=== PATIENT | female | born 1940 | race Caucasian/White ===

== ENCOUNTER 2020-03-05 16:46 | Emergency (ER) | payer MEDICARE, MEDICAID ==
[~2020-03-05] VITALS: Ht 160 cm; Wt 81.8 kg
--- NOTE | 2020-03-05 18:04 | REPVR ---
PROCEDURE INFORMATION: Exam: XR Left Hip with Pelvis when Performed Exam date and time: 03/05/2020 5:58 PM Age: 79 years old Clinical indication: Hip pain; Left hip; Additional info: Fall 5 days ago TECHNIQUE: Imaging protocol: XR Left hip with pelvis when performed. Views: 2 or 3 views. COMPARISON: No relevant prior studies available. FINDINGS: Bones/joints: Degenerative changes in both hip joints. Degenerative spondylosis lower lumbar spine. Soft tissues: Unremarkable. IMPRESSION: No acute findings. Electronically signed by: Jakub Mack On 03/05/2020 18:04:16 PM
--- NOTE | 2020-03-05 18:05 | REPVR ---
PROCEDURE INFORMATION: Exam: XR Left Knee Exam date and time: 03/05/2020 5:58 PM Age: 79 years old Clinical indication: Pain; Knee; Left; Additional info: Fall 5 days ago TECHNIQUE: Imaging protocol: XR Left knee. Views: 4 or more views. COMPARISON: No relevant prior studies available. FINDINGS: Bones/joints: Degenerative changes most pronounced in the medial and patellofemoral joint compartments. Osteoporosis. Soft tissues: Normal. IMPRESSION: No acute findings. Degenerative changes as described above. Electronically signed by: Jakub Mack On 03/05/2020 18:05:10 PM
[2020-03-05] MEDS ORDERED: NORCO, ANEXSIA 5/325MG TABLET (HYDROcodone/ACETAMINOPHEN) PO ONE (19:00)
[2020-03-05] MEDS ORDERED: NORC1TAB7 PO (20:45)
[2020-03-05] MEDS ORDERED: bedside commode (20:50)
[2020-03-05] MEDS ORDERED: rolling walker (20:50)
[2020-03-05] MEDS ORDERED: NORCO 5/325MG TABLET (BULK FOR ED) PO ONE (21:00)
[2020-03-05 21:15] VITALS: BP 166/82
== END 2020-03-05 21:15 | disposition home or self-care (01) ==
LOC: M ED 16:46 → EDBD 16:46 → M ED 21:15
DX: S70.02XA Contusion of left hip, initial encounter (principal); W01.0XXA Fall on same level from slipping, tripping and stumbling without subsequent striking against object, initial encounter; Y92.9 Unspecified place or not applicable; Y93.9 Activity, unspecified; Y99.9 Unspecified external cause status

== ENCOUNTER → 2020-04-26 | Outpatient (REF) | payer MEDICARE, OTHER ==
[~2020-04-26] MED LIST: NORC1TAB7 PO; bedside commode; rolling walker
[2020-04-26 18:10] LABS: BASO # 0.1 10^3/uL (0.0-0.2); BASO % 0.8 % (0.0-1.0); EOS # 0.5 10^3/uL (0.0-0.5); EOS % 7.6 % (0.0-3.0); HEMATOCRIT 36.6 % (36.0-47.0); HEMOGLOBIN 11.9 g/dl (12.0-15.5); LYMPH # 1.3 10^3/uL (1.5-5.0); LYMPH % 22.8 % (24.0-44.0); MEAN CORPUSCULAR HEMOGLOBIN 29.5 pg (27.0-33.0); MEAN CORPUSCULAR HGB CONC 32.5 g/dl (32.0-36.5); MEAN CORPUSCULAR VOLUME 90.8 fl (80.0-96.0); MONO # 0.3 10^3/uL (0.0-0.8); MONO % 4.6 % (0.0-5.0); NEUTROPHILS # 3.8 10^3/uL (1.5-8.5); PLATELET COUNT, AUTOMATED 182 10^3/uL (150-450); RED BLOOD COUNT 4.03 10^6/uL (4.00-5.40); WHITE BLOOD COUNT 5.9 10^3/uL (4.0-10.0)
[2020-04-26 18:54] LABS: ALBUMIN 3.5 GM/DL (3.2-5.2); BILIRUBIN,TOTAL 1.1 MG/DL (0.2-1.0); CALCIUM LEVEL 8.8 MG/DL (8.8-10.2); CHOLESTEROL RISK RATIO 2.982 (<5); CREATININE FOR GFR 1.11 MG/DL (0.55-1.30); GLOMERULAR FILTRATION RATE 50.6 (>39); POTASSIUM SERUM 4.4 MEQ/L (3.5-5.1); THYROID STIMULATING HORMONE 3.46 uIU/ML (0.358-3.740); TOTAL PROTEIN 6.9 GM/DL (6.4-8.2)
== END ==
LOC: M LAB REF 16:51
PROVIDERS: ATTEND Physician Assistant
DX: Z13.220 Encounter for screening for lipoid disorders (principal); Z13.228 Encounter for screening for other metabolic disorders; R03.0 Elevated blood-pressure reading, without diagnosis of hypertension

== ENCOUNTER → 2022-04-27 | Outpatient (REF) | payer MEDICARE, OTHER ==
[2022-04-27 18:22] LABS: HEMATOCRIT 36.4 % (36.0-47.0); HEMOGLOBIN 11.5 g/dl (12.0-15.5); MEAN CORPUSCULAR HEMOGLOBIN 29.9 pg (27.0-33.0); MEAN CORPUSCULAR HGB CONC 31.6 g/dl (32.0-36.5); MEAN CORPUSCULAR VOLUME 94.5 fl (80.0-96.0); PLATELET COUNT, AUTOMATED 186 10^3/uL (150-450); RED BLOOD COUNT 3.85 10^6/uL (4.00-5.40); WHITE BLOOD COUNT 6.3 10^3/uL (4.0-10.0)
[2022-04-27 20:46] LABS: ALBUMIN 3.5 GM/DL (3.2-5.2); BILIRUBIN,TOTAL 0.5 MG/DL (0.2-1.0); CHOLESTEROL RISK RATIO 2.666 (<5); CREATININE FOR GFR 1.04 MG/DL (0.55-1.30); GLOMERULAR FILTRATION RATE 54.3 (>32); THYROID STIMULATING HORMONE 1.03 uIU/ML (0.358-3.740)
== END ==
LOC: M LAB REF 17:08
PROVIDERS: ATTEND Physician Assistant
DX: I10 Essential (primary) hypertension (principal)

== ENCOUNTER 2023-12-02 09:35 | Day surgery (SDC) | payer OTHER ==
[2023-11-11] MEDS: OFLOXACIN 0.3 % (OCUFLOX) OPTH SOL 5ML OD ONE (08:15)
[2023-11-11] MEDS: LIDOCAINE 3.5 % 1ML OPHTH TOPICAL GEL OU ONE (10:00)
[~2023-12-02] VITALS: Ht 154.9 cm; Wt 88.9 kg
[~2023-12-02 09:35] MED LIST changes: +ATROPINE SULFATE 1% OPHTH SOLN 2ML BTL OD SCH; +ATROPINE SULFATE 1% OPHTH SOLN 2ML BTL OS SCH; +BSS IRRIG/VANCO(10MG)/TOBRA(5MG)/EPINEPH(1:1000-0.5CC)500ML BAG-ORONLY As Ordered ONE; +CEFUROXIME 1MG/0.1ML INTRACAMERAL INJ As Ordered ONE; +LIDOCAINE 1% SDV 5ML VIAL As Ordered ONE; +MIDAZOLAM INJ 2MG/2ML VIAL As Ordered ONE; +PHENYLEPHRINE 10% OPHTH SOL 5ML OD PRN; +PHENYLEPHRINE 10% OPHTH SOL 5ML OS PRN; +PHENYLEPHRINE 2.5% OPHTH SOL 2ML OD SCH; +PHENYLEPHRINE 2.5% OPHTH SOL 2ML OS SCH; +TROPICAMIDE 1% OPHTH SOLN 15ML OD SCH; +fentaNYL 100 MCG/2 ML INJECTION As Ordered ONE
[2023-12-02 09:52] VITALS: BP 145/72; TEMP 97.8; O2SAT 96
[2023-12-02] MEDS: LIDOCAINE 3.5 % 1ML OPHTH TOPICAL GEL OU ONE (10:00)
[2023-12-02] MEDS: OFLOXACIN 0.3 % (OCUFLOX) OPTH SOL 5ML OS ONE (10:00)
[2023-12-02] MEDS: TROPICAMIDE 1% OPHTH SOLN 15ML OS SCH (10:47)
== END 2023-12-02 10:40 | disposition home or self-care (01) ==
LOC: M SDC 09:35
PROVIDERS: ATTEND Ophthalmology
DX: H25.11 Age-related nuclear cataract, right eye (principal); Z53.8 Procedure and treatment not carried out for other reasons

== ENCOUNTER 2024-01-20 09:38 | Day surgery (SDC) | payer OTHER ==
[~2024-01-20] VITALS: Ht 157.5 cm; Wt 85.7 kg
[2024-01-20] MEDS: OFLOXACIN 0.3 % (OCUFLOX) OPTH SOL 5ML OS ONE (06:00)
[2024-01-20] MEDS: LIDOCAINE 3.5 % 1ML OPHTH TOPICAL GEL OU ONE (06:00)
[~2024-01-20 09:38] MED LIST changes: -ATROPINE SULFATE 1% OPHTH SOLN 2ML BTL OD SCH; -ATROPINE SULFATE 1% OPHTH SOLN 2ML BTL OS SCH; -BSS IRRIG/VANCO(10MG)/TOBRA(5MG)/EPINEPH(1:1000-0.5CC)500ML BAG-ORONLY As Ordered ONE; -CEFUROXIME 1MG/0.1ML INTRACAMERAL INJ As Ordered ONE; -LIDOCAINE 1% SDV 5ML VIAL As Ordered ONE; -MIDAZOLAM INJ 2MG/2ML VIAL As Ordered ONE; -PHENYLEPHRINE 10% OPHTH SOL 5ML OD PRN; -PHENYLEPHRINE 2.5% OPHTH SOL 2ML OD SCH; -PHENYLEPHRINE 2.5% OPHTH SOL 2ML OS SCH; -TROPICAMIDE 1% OPHTH SOLN 15ML OD SCH; -fentaNYL 100 MCG/2 ML INJECTION As Ordered ONE
[2024-01-20] MEDS: TROPICAMIDE 1% OPHTH SOLN 15ML OS SCH (10:21)
[2024-01-20] MEDS: ATROPINE SULFATE 1% OPHTH SOLN 2ML BTL OS SCH (10:21)
[2024-01-20] MEDS: PHENYLEPHRINE 2.5% OPHTH SOL 2ML OS SCH (10:21)
[2024-01-20] MEDS: BSS IRRIG/VANCO(10MG)/TOBRA(5MG)/EPINEPH(1:1000-0.5CC)500ML BAG-ORONLY As Ordered ONE (10:36)
[2024-01-20] MEDS: LIDOCAINE 1% SDV 5ML VIAL As Ordered ONE (10:36)
[2024-01-20] MEDS ORDERED: MIDAZOLAM INJ 2MG/2ML VIAL As Ordered ONE (10:38)
[2024-01-20] MEDS ORDERED: fentaNYL 100 MCG/2 ML INJECTION As Ordered ONE (10:39)
[2024-01-20] MEDS: CEFUROXIME 1MG/0.1ML INTRACAMERAL INJ As Ordered ONE (10:40)
[2024-01-20] MEDS: PROVISC 10 MG/ML 0.85ML SYRINGE As Ordered ONE (10:41)
[2024-01-20 10:49] VITALS: BP 129/58; TEMP 97.2; O2SAT 95
== END 2024-01-20 11:09 | disposition home or self-care (01) ==
LOC: M SDC 09:38
PROVIDERS: ATTEND Ophthalmology
DX: H25.12 Age-related nuclear cataract, left eye (principal); Z91.018 Allergy to other foods; J30.2 Other seasonal allergic rhinitis
CPT/HCPCS: 66984; A4649; J0697; J2250; J3010; V2632

== ENCOUNTER 2024-04-05 12:51 | Inpatient (IN) | payer MEDICARE, OTHER ==
[~2024-04-05] VITALS: Ht 160 cm; Wt 81.4 kg
[2024-04-05] VITALS (8 sets, daily range): BP systolic 99–135; BP diastolic 48–77; TEMP 97.1–98.1; O2SAT 96–100
[~2024-04-05 12:51] MED LIST changes: -PHENYLEPHRINE 10% OPHTH SOL 5ML OS PRN
[2024-04-05 14:10] LABS: BASO # 0.1 10^3/uL (0.0-0.2); BASO % 0.7 % (0.0-1.0); EOS # 0.3 10^3/uL (0.0-0.5); EOS % 3.8 % (0.0-3.0); LYMPH % 13.4 % (24.0-44.0); MEAN CORPUSCULAR HEMOGLOBIN 21.7 pg (27.0-33.0); MEAN CORPUSCULAR HGB CONC 27.8 g/dl (32.0-36.5); MEAN CORPUSCULAR VOLUME 77.9 fl (80.0-96.0); MONO # 0.4 10^3/uL (0.0-0.8); MONO % 5.7 % (2.0-8.0); NEUTROPHILS # 5.7 10^3/uL (1.5-8.5); NEUTROPHILS % 76.1 % (36.0-66.0); PLATELET COUNT, AUTOMATED 226 10^3/uL (150-450); WHITE BLOOD COUNT 7.5 10^3/uL (4.0-10.0)
[2024-04-05 14:18] LABS: HEMATOCRIT 18.7 % (36.0-47.0); HEMOGLOBIN 5.2 g/dl (12.0-15.5)
[2024-04-05 14:21] LABS: INR 1.31; PARTIAL THROMBOPLASTIN TIME 29.1 SECONDS (24.8-34.2); PROTHROMBIN TIME 15.9 SECONDS (12.5-14.5)
[2024-04-05 14:27] LABS: ALBUMIN 2.5 G/DL (3.2-5.2); BILIRUBIN,DIRECT 0.3 MG/DL (<0.4); BILIRUBIN,TOTAL 0.6 MG/DL (0.3-1.2); CALCIUM LEVEL 8.5 MG/DL (8.3-10.6); CREATININE FOR GFR 1.12 MG/DL (0.55-1.30); GLOMERULAR FILTRATION RATE 49.6 (>32); POTASSIUM SERUM 3.4 MMOL/L (3.5-5.1); TOTAL PROTEIN 6.3 G/DL (5.7-8.2)
[2024-04-05 14:29] LABS: THYROXINE (T4) 10.3 UG/DL (4.5-10.9)
[2024-04-05 14:30] LABS: THYROID STIMULATING HORMONE 2.566 uIU/ML (0.55-4.78)
[2024-04-05] MEDS ORDERED: ISOVUE-370 76% 100ML VIAL As Ordered ONE (15:16)
[2024-04-05] MEDS ORDERED: HOME MED LIST COMPLETE! XX SCH (16:50)
[2024-04-05] MEDS: POTASSIUM CHLORIDE 10MEQ SR TABLET PO ONE (18:07)
[2024-04-05] MEDS: GASTROGRAFIN SOLUTION 30ML PO SCH (18:07)
[2024-04-05] MEDS: HEPARIN SOD (PORCINE) 5000UNITS/ML 1ML VIAL/SYRINGE IV ONE (18:17)
[2024-04-05] MEDS: HEPARIN DRIP 25,000 UNITS in IV 1 EA IV SCH (18:18)
[2024-04-06] VITALS (13 sets, daily range): BP systolic 103–150; BP diastolic 55–91; TEMP 97.6–98.8; O2SAT 95–100
[2024-04-06 01:03] LABS: HEMATOCRIT 21.2 % (36.0-47.0); HEMOGLOBIN 6.4 g/dl (12.0-15.5)
[2024-04-06 01:22] LABS: D-DIMER QUANT 2.93 ug/mL (<0.5); INR 1.53; PROTHROMBIN TIME 17.9 SECONDS (12.5-14.5)
[2024-04-06 01:28] LABS: PARTIAL THROMBOPLASTIN TIME 155.7 SECONDS (24.8-34.2)
[2024-04-06 01:41] LABS: PERCENT SATURATION 89.7 % (13.2-45.0)
[2024-04-06 01:43] LABS: FERRITIN 9.3 NG/ML (7.3-270.7)
[2024-04-06] MEDS: SENOKOT S TAB PO SCH (09:00)
[2024-04-06] MEDS: CIPROFLOXACIN 500MG TABLET PO SCH (09:49)
[2024-04-06] MEDS: metroNIDAZOLE (FLAGYL) 500MG TABLET PO SCH (09:49)
[2024-04-06] MEDS: BISACODYL 10MG SUPP PR ONE (09:49)
[2024-04-06] MEDS: PANTOPRAZOLE 40MG TAB (PROTONIX) PO SCH (09:49)
[2024-04-06 10:11] LABS: HEMATOCRIT 21.5 % (36.0-47.0); MEAN CORPUSCULAR HGB CONC 30.2 g/dl (32.0-36.5); MEAN CORPUSCULAR VOLUME 79.3 fl (80.0-96.0); PLATELET COUNT, AUTOMATED 185 10^3/uL (150-450); RED BLOOD COUNT 2.71 10^6/uL (4.00-5.40); WHITE BLOOD COUNT 5.3 10^3/uL (4.0-10.0)
[2024-04-06 10:21] LABS: HEMOGLOBIN 6.5 g/dl (12.0-15.5)
[2024-04-06 13:06] LABS: BILIRUBIN,TOTAL 1.3 MG/DL (0.3-1.2); CREATININE FOR GFR 1.06 MG/DL (0.55-1.30); GLOMERULAR FILTRATION RATE 52.8 (>32); POTASSIUM SERUM 4.2 MMOL/L (3.5-5.1); TOTAL PROTEIN 5.1 G/DL (5.7-8.2)
[2024-04-06] MEDS: FERROUS SULFATE 325MG TAB PO SCH (15:25)
[2024-04-06] MEDS: ASCORBIC ACID 500 MG TAB PO SCH (15:25)
[2024-04-06 17:19] LABS: HEMATOCRIT 21.5 % (36.0-47.0)
[2024-04-06 17:32] LABS: FOLATE 7.66 NG/ML (>5.4)
[2024-04-06 17:49] LABS: HEMATOCRIT 28.4 % (36.0-47.0)
[2024-04-06 18:02] LABS: HEMOGLOBIN 8.8 g/dl (12.0-15.5)
[2024-04-06] MEDS: HEPARIN SOD (PORCINE) 5000UNITS/ML 1ML VIAL/SYRINGE IV PRN (18:29)
[2024-04-06] MEDS: TRIAMCINOLONE ACET 0.1% OINTMENT 80GM TOP SCH (20:40)
[2024-04-07 04:20] VITALS: BP 164/80; TEMP 97.9; O2SAT 95
[2024-04-07 05:39] LABS: HEMATOCRIT 26.9 % (36.0-47.0); HEMOGLOBIN 8.4 g/dl (12.0-15.5); MEAN CORPUSCULAR HEMOGLOBIN 25.1 pg (27.0-33.0); MEAN CORPUSCULAR HGB CONC 31.2 g/dl (32.0-36.5); MEAN CORPUSCULAR VOLUME 80.5 fl (80.0-96.0); PLATELET COUNT, AUTOMATED 176 10^3/uL (150-450); RED BLOOD COUNT 3.34 10^6/uL (4.00-5.40); WHITE BLOOD COUNT 5.1 10^3/uL (4.0-10.0)
[2024-04-07 05:49] LABS: INR 1.39; PARTIAL THROMBOPLASTIN TIME 29.8 SECONDS (24.8-34.2); PROTHROMBIN TIME 16.6 SECONDS (12.5-14.5)
[2024-04-07 08:12] VITALS: BP 134/62; TEMP 97.6; O2SAT 96
[2024-04-07 09:48] LABS: INR 1.53; PARTIAL THROMBOPLASTIN TIME 28.9 SECONDS (24.8-34.2); PROTHROMBIN TIME 17.9 SECONDS (12.5-14.5)
[2024-04-07 11:51] VITALS: BP 152/80; TEMP 97; O2SAT 92
[2024-04-07 12:16] LABS: HEMATOCRIT 27.5 % (36.0-47.0); HEMOGLOBIN 8.6 g/dl (12.0-15.5)
[2024-04-07 17:48] LABS: ANA PATTERN Nuclear, Homogeneous (NEGATIVE); ANA SCREEN, IFA POSITIVE (NEGATIVE); ANA TITER 1:40 titer (<1:40)
[2024-04-07 20:27] VITALS: BP 139/70; TEMP 97.6; O2SAT 97
[2024-04-07] MEDS: RAMELTEON 8 MG TAB (ROZEREM) PO STA (21:15)
[2024-04-07] MEDS: diphenhydrAMINE 25MG CAP PO STA (21:16)
[2024-04-08 02:12] LABS: INR 1.62; PROTHROMBIN TIME 18.7 SECONDS (12.5-14.5)
[2024-04-08 02:23] LABS: PARTIAL THROMBOPLASTIN TIME 178.6 SECONDS (24.8-34.2)
[2024-04-08 05:18] VITALS: BP 121/66; TEMP 97.2; O2SAT 96
[2024-04-08 05:49] LABS: HEMATOCRIT 27.9 % (36.0-47.0); HEMOGLOBIN 8.3 g/dl (12.0-15.5); MEAN CORPUSCULAR HEMOGLOBIN 24.9 pg (27.0-33.0); MEAN CORPUSCULAR HGB CONC 29.7 g/dl (32.0-36.5); MEAN CORPUSCULAR VOLUME 83.5 fl (80.0-96.0); PLATELET COUNT, AUTOMATED 164 10^3/uL (150-450); RED BLOOD COUNT 3.34 10^6/uL (4.00-5.40)
[2024-04-08 08:00] VITALS: BP 130/65; TEMP 97.4; O2SAT 97
[2024-04-08 12:00] VITALS: BP 130/65; TEMP 97.4; O2SAT 97
[2024-04-08] MEDS: ENOXAPARIN 80MG/0.8ML SYRINGE (J1650 PER 10MG) SC SCH (12:12)
[2024-04-08] MEDS ORDERED: traMADol 50 MG TAB PO PRN (13:20)
[2024-04-08] MEDS: ACETAMINOPHEN 500 MG TAB PO SCH (14:20)
[2024-04-08 16:00] VITALS: BP 105/55; TEMP 97.8; O2SAT 97
[2024-04-08] MEDS: LIDOCAINE 5% (LIDODERM) PATCH TD SCH (16:12)
[2024-04-08 19:25] VITALS: BP 103/62; TEMP 97.6; O2SAT 96
[2024-04-09 05:23] VITALS: BP 121/60; TEMP 97.3; O2SAT 96
[2024-04-09 05:38] LABS: BASO % 0.6 % (0.0-1.0); EOS # 0.3 10^3/uL (0.0-0.5); EOS % 9.9 % (0.0-3.0); HEMATOCRIT 27.9 % (36.0-47.0); HEMOGLOBIN 8.4 g/dl (12.0-15.5); LYMPH % 28.2 % (24.0-44.0); MEAN CORPUSCULAR HEMOGLOBIN 25.2 pg (27.0-33.0); MEAN CORPUSCULAR HGB CONC 30.1 g/dl (32.0-36.5); MEAN CORPUSCULAR VOLUME 83.8 fl (80.0-96.0); MONO # 0.3 10^3/uL (0.0-0.8); NEUTROPHILS # 1.8 10^3/uL (1.5-8.5); PLATELET COUNT, AUTOMATED 173 10^3/uL (150-450); RED BLOOD COUNT 3.33 10^6/uL (4.00-5.40); WHITE BLOOD COUNT 3.4 10^3/uL (4.0-10.0)
[2024-04-09] MEDS: ONDANSETRON 4MG 2ML VIAL IV PRN (05:49)
[2024-04-09 06:02] LABS: CALCIUM LEVEL 8.4 MG/DL (8.3-10.6); CREATININE FOR GFR 1.21 MG/DL (0.55-1.30); GLOMERULAR FILTRATION RATE 45.4 (>32); POTASSIUM SERUM 3.4 MMOL/L (3.5-5.1)
[2024-04-09 07:42] VITALS: BP 114/61; TEMP 97.5; O2SAT 97
[2024-04-09] MEDS: POTASSIUM CHLORIDE 10% LIQ 20MEQ/15ML UDC PO ONE (10:02)
[2024-04-09 12:00] VITALS: BP 121/65; TEMP 97.6; O2SAT 97
[2024-04-09 18:00] VITALS: BP 110/60; TEMP 97.8; O2SAT 97
[2024-04-09 20:08] VITALS: BP 108/66; TEMP 97.6; O2SAT 96
[2024-04-10 05:24] VITALS: BP 128/61; TEMP 97.4; O2SAT 94
[2024-04-10 07:08] LABS: BASO % 1.1 % (0.0-1.0); EOS # 0.3 10^3/uL (0.0-0.5); EOS % 9.2 % (0.0-3.0); HEMATOCRIT 28.7 % (36.0-47.0); HEMOGLOBIN 8.8 g/dl (12.0-15.5); LYMPH # 0.9 10^3/uL (1.5-5.0); LYMPH % 24.5 % (24.0-44.0); MEAN CORPUSCULAR HGB CONC 30.7 g/dl (32.0-36.5); MEAN CORPUSCULAR VOLUME 84.7 fl (80.0-96.0); MONO # 0.3 10^3/uL (0.0-0.8); MONO % 7.6 % (2.0-8.0); NEUTROPHILS # 2.1 10^3/uL (1.5-8.5); NEUTROPHILS % 57.3 % (36.0-66.0); PLATELET COUNT, AUTOMATED 195 10^3/uL (150-450); RED BLOOD COUNT 3.39 10^6/uL (4.00-5.40); WHITE BLOOD COUNT 3.7 10^3/uL (4.0-10.0)
[2024-04-10 07:39] LABS: CALCIUM LEVEL 8.9 MG/DL (8.3-10.6); CREATININE FOR GFR 1.23 MG/DL (0.55-1.30); GLOMERULAR FILTRATION RATE 44.5 (>32); POTASSIUM SERUM 3.4 MMOL/L (3.5-5.1)
[2024-04-10 12:18] VITALS: BP 111/70; TEMP 98.1; O2SAT 97
[2024-04-10 16:00] VITALS: BP 129/62; TEMP 98.1; O2SAT 95
[2024-04-10 18:02] LABS: HOMOCYST(E)INE SERUM 25.7 umol/L (<10.4)
[2024-04-10 19:48] VITALS: BP 112/62; TEMP 97.8; O2SAT 97
[2024-04-11 03:22] VITALS: BP 121/58; TEMP 97.6; O2SAT 93
[2024-04-11 07:43] LABS: BASO % 0.8 % (0.0-1.0); EOS # 0.3 10^3/uL (0.0-0.5); HEMATOCRIT 29.5 % (36.0-47.0); HEMOGLOBIN 8.9 g/dl (12.0-15.5); LYMPH # 1.1 10^3/uL (1.5-5.0); LYMPH % 28.6 % (24.0-44.0); MEAN CORPUSCULAR HEMOGLOBIN 25.5 pg (27.0-33.0); MEAN CORPUSCULAR HGB CONC 30.2 g/dl (32.0-36.5); MEAN CORPUSCULAR VOLUME 84.5 fl (80.0-96.0); MONO # 0.3 10^3/uL (0.0-0.8); MONO % 6.7 % (2.0-8.0); NEUTROPHILS # 2.1 10^3/uL (1.5-8.5); NEUTROPHILS % 56.6 % (36.0-66.0); PLATELET COUNT, AUTOMATED 204 10^3/uL (150-450); RED BLOOD COUNT 3.49 10^6/uL (4.00-5.40); WHITE BLOOD COUNT 3.7 10^3/uL (4.0-10.0)
[2024-04-11 07:59] LABS: CALCIUM LEVEL 8.3 MG/DL (8.3-10.6); CREATININE FOR GFR 1.25 MG/DL (0.55-1.30); GLOMERULAR FILTRATION RATE 43.7 (>32); POTASSIUM SERUM 3.4 MMOL/L (3.5-5.1)
[2024-04-11 08:10] VITALS: BP 124/57; TEMP 97.3; O2SAT 95
[2024-04-11] MEDS: METOCLOPRAMIDE INJ 10MG/2ML VIAL IV PRN (13:14)
[2024-04-11 14:00] VITALS: BP 125/58; TEMP 97.3; O2SAT 92
[2024-04-11] MEDS ORDERED: LIDOCAINE 1% MDV 20ML VIAL As Ordered ONE (15:11)
[2024-04-11 16:00] VITALS: BP 125/58; TEMP 97.3; O2SAT 92
[2024-04-11] MEDS: POTASSIUM CHLORIDE 10MEQ SR TABLET PO SCH (18:03)
[2024-04-11 19:38] VITALS: BP 128/57; TEMP 97.6; O2SAT 93
[2024-04-12 01:58] LABS: ANTI THROMBIN 3 ANTIGEN IMMUNO 71 % normal (80-120); ANTI THROMBIN 3 FUNCT ACTIVITY 56 % normal (80-135)
[2024-04-12 03:31] VITALS: BP 148/63; TEMP 97.4; O2SAT 93
[2024-04-12 06:45] LABS: BASO # 0.1 10^3/uL (0.0-0.2); BASO % 1.2 % (0.0-1.0); EOS # 0.2 10^3/uL (0.0-0.5); EOS % 3.6 % (0.0-3.0); HEMATOCRIT 29.2 % (36.0-47.0); HEMOGLOBIN 9.1 g/dl (12.0-15.5); LYMPH # 0.9 10^3/uL (1.5-5.0); LYMPH % 22.6 % (24.0-44.0); MEAN CORPUSCULAR HEMOGLOBIN 26.1 pg (27.0-33.0); MEAN CORPUSCULAR HGB CONC 31.2 g/dl (32.0-36.5); MEAN CORPUSCULAR VOLUME 83.9 fl (80.0-96.0); MONO # 0.3 10^3/uL (0.0-0.8); MONO % 6.5 % (2.0-8.0); NEUTROPHILS # 2.7 10^3/uL (1.5-8.5); NEUTROPHILS % 65.9 % (36.0-66.0); PLATELET COUNT, AUTOMATED 187 10^3/uL (150-450); RED BLOOD COUNT 3.48 10^6/uL (4.00-5.40); WHITE BLOOD COUNT 4.2 10^3/uL (4.0-10.0)
[2024-04-12 07:09] LABS: CALCIUM LEVEL 8.2 MG/DL (8.3-10.6); CREATININE FOR GFR 1.28 MG/DL (0.55-1.30); GLOMERULAR FILTRATION RATE 42.5 (>32); POTASSIUM SERUM 3.6 MMOL/L (3.5-5.1)
[2024-04-12 07:36] VITALS: BP 109/59; TEMP 97.6; O2SAT 94
[2024-04-12 16:00] VITALS: BP 118/75; TEMP 97.7; O2SAT 93
[2024-04-12 20:10] VITALS: BP 136/65; TEMP 97.4; O2SAT 92
[2024-04-12 23:51] VITALS: BP 123/58; TEMP 97.4; O2SAT 96
[2024-04-13 05:22] LABS: BASO % 0.6 % (0.0-1.0); EOS # 0.1 10^3/uL (0.0-0.5); EOS % 2.8 % (0.0-3.0); HEMATOCRIT 28.2 % (36.0-47.0); HEMOGLOBIN 8.7 g/dl (12.0-15.5); MEAN CORPUSCULAR HEMOGLOBIN 25.8 pg (27.0-33.0); MEAN CORPUSCULAR HGB CONC 30.9 g/dl (32.0-36.5); MEAN CORPUSCULAR VOLUME 83.7 fl (80.0-96.0); MONO # 0.3 10^3/uL (0.0-0.8); MONO % 6.5 % (2.0-8.0); NEUTROPHILS # 3.5 10^3/uL (1.5-8.5); NEUTROPHILS % 69.7 % (36.0-66.0); PLATELET COUNT, AUTOMATED 196 10^3/uL (150-450); RED BLOOD COUNT 3.37 10^6/uL (4.00-5.40)
[2024-04-13 05:49] LABS: CALCIUM LEVEL 8.1 MG/DL (8.3-10.6); CREATININE FOR GFR 1.22 MG/DL (0.55-1.30); GLOMERULAR FILTRATION RATE 44.9 (>32); POTASSIUM SERUM 3.9 MMOL/L (3.5-5.1)
[2024-04-13 08:17] VITALS: BP 125/60; TEMP 97.9; O2SAT 96
[2024-04-13 12:32] LABS: PTT LUPUS TYPE ANTICOAG SCREEN 1.12 (0-1.20)
[2024-04-13 12:48] VITALS: BP 120/80; TEMP 98; O2SAT 96
[2024-04-13 16:42] VITALS: BP 118/58; TEMP 98; O2SAT 93
[2024-04-13 20:54] VITALS: BP 118/78; TEMP 97.4; O2SAT 95
[2024-04-13] MEDS: APIXABAN 5 MG TAB (ELIQUIS) PO SCH (21:17)
[2024-04-14] VITALS (14 sets, daily range): BP systolic 101–130; BP diastolic 52–83; TEMP 96.3–98.4; O2SAT 91–99
[2024-04-14] MEDS ORDERED: PILL CUTTER 1 EACH XX ONE (00:46)
[2024-04-14 05:37] LABS: BASO % 0.5 % (0.0-1.0); EOS # 0.1 10^3/uL (0.0-0.5); HEMATOCRIT 24.6 % (36.0-47.0); HEMOGLOBIN 7.4 g/dl (12.0-15.5); LYMPH # 0.9 10^3/uL (1.5-5.0); LYMPH % 15.5 % (24.0-44.0); MEAN CORPUSCULAR HEMOGLOBIN 25.9 pg (27.0-33.0); MEAN CORPUSCULAR HGB CONC 30.1 g/dl (32.0-36.5); MONO # 0.4 10^3/uL (0.0-0.8); MONO % 6.1 % (2.0-8.0); NEUTROPHILS # 4.4 10^3/uL (1.5-8.5); NEUTROPHILS % 75.4 % (36.0-66.0); PLATELET COUNT, AUTOMATED 193 10^3/uL (150-450); RED BLOOD COUNT 2.86 10^6/uL (4.00-5.40); WHITE BLOOD COUNT 5.9 10^3/uL (4.0-10.0)
[2024-04-14 05:56] LABS: CALCIUM LEVEL 7.7 MG/DL (8.3-10.6); CREATININE FOR GFR 1.24 MG/DL (0.55-1.30); GLOMERULAR FILTRATION RATE 44.1 (>32); POTASSIUM SERUM 4.3 MMOL/L (3.5-5.1)
[2024-04-14] MEDS ORDERED: ISOVUE-300 61% 100ML VIAL As Ordered ONE (14:39)
[2024-04-14] MEDS ORDERED: MIDAZOLAM INJ 2MG/2ML VIAL As Ordered ONE (15:01)
[2024-04-14] MEDS ORDERED: fentaNYL 100 MCG/2 ML INJECTION As Ordered ONE (15:01)
[2024-04-15 03:45] VITALS: BP 127/69; TEMP 98.1; O2SAT 94
[2024-04-15 06:54] LABS: BASO % 0.6 % (0.0-1.0); EOS % 0.6 % (0.0-3.0); HEMATOCRIT 26.4 % (36.0-47.0); HEMOGLOBIN 8.5 g/dl (12.0-15.5); LYMPH % 14.2 % (24.0-44.0); MEAN CORPUSCULAR HEMOGLOBIN 27.2 pg (27.0-33.0); MEAN CORPUSCULAR HGB CONC 32.2 g/dl (32.0-36.5); MEAN CORPUSCULAR VOLUME 84.3 fl (80.0-96.0); MONO # 0.6 10^3/uL (0.0-0.8); NEUTROPHILS # 5.5 10^3/uL (1.5-8.5); PLATELET COUNT, AUTOMATED 192 10^3/uL (150-450); RED BLOOD COUNT 3.13 10^6/uL (4.00-5.40); WHITE BLOOD COUNT 7.3 10^3/uL (4.0-10.0)
[2024-04-15 07:19] LABS: CREATININE FOR GFR 1.35 MG/DL (0.55-1.30); POTASSIUM SERUM 4.3 MMOL/L (3.5-5.1)
[2024-04-15 12:00] VITALS: BP 120/70; TEMP 97.9; O2SAT 97
[2024-04-15 20:00] VITALS: BP 120/50; TEMP 97.5; O2SAT 94
[2024-04-15] MEDS ORDERED: APIXABAN 5 MG TAB (ELIQUIS) PO SCH (21:00)
[2024-04-15 21:43] LABS: FACTOR V LEIDEN FOR MEDINET NEGATIVE
[2024-04-16 04:12] VITALS: BP 123/53; TEMP 97.3; O2SAT 96
[2024-04-16 07:57] LABS: BASO % 0.4 % (0.0-1.0); EOS # 0.1 10^3/uL (0.0-0.5); EOS % 1.4 % (0.0-3.0); HEMATOCRIT 24.8 % (36.0-47.0); HEMOGLOBIN 7.7 g/dl (12.0-15.5); LYMPH % 13.2 % (24.0-44.0); MEAN CORPUSCULAR HEMOGLOBIN 26.9 pg (27.0-33.0); MEAN CORPUSCULAR VOLUME 86.7 fl (80.0-96.0); MONO # 0.5 10^3/uL (0.0-0.8); MONO % 6.9 % (2.0-8.0); NEUTROPHILS % 77.7 % (36.0-66.0); PLATELET COUNT, AUTOMATED 196 10^3/uL (150-450); RED BLOOD COUNT 2.86 10^6/uL (4.00-5.40); WHITE BLOOD COUNT 7.7 10^3/uL (4.0-10.0)
[2024-04-16 08:26] LABS: CALCIUM LEVEL 7.8 MG/DL (8.3-10.6); CREATININE FOR GFR 1.28 MG/DL (0.55-1.30); GLOMERULAR FILTRATION RATE 42.5 (>32); POTASSIUM SERUM 4.5 MMOL/L (3.5-5.1)
[2024-04-16 12:00] VITALS: BP 122/61; TEMP 97.7; O2SAT 93
[2024-04-16 20:00] VITALS: BP 139/60; TEMP 97.7; O2SAT 97
[2024-04-17] VITALS (9 sets, daily range): BP systolic 100–139; BP diastolic 58–79; TEMP 97.5–97.9; O2SAT 95–100
[2024-04-17 05:51] LABS: BASO % 0.3 % (0.0-1.0); EOS # 0.1 10^3/uL (0.0-0.5); EOS % 2.1 % (0.0-3.0); HEMATOCRIT 22.8 % (36.0-47.0); HEMOGLOBIN 7.1 g/dl (12.0-15.5); LYMPH # 1.1 10^3/uL (1.5-5.0); LYMPH % 17.7 % (24.0-44.0); MEAN CORPUSCULAR HGB CONC 31.1 g/dl (32.0-36.5); MEAN CORPUSCULAR VOLUME 86.7 fl (80.0-96.0); MONO # 0.5 10^3/uL (0.0-0.8); MONO % 7.3 % (2.0-8.0); NEUTROPHILS # 4.4 10^3/uL (1.5-8.5); NEUTROPHILS % 72.1 % (36.0-66.0); PLATELET COUNT, AUTOMATED 190 10^3/uL (150-450); RED BLOOD COUNT 2.63 10^6/uL (4.00-5.40); WHITE BLOOD COUNT 6.2 10^3/uL (4.0-10.0)
[2024-04-17 06:17] LABS: CALCIUM LEVEL 7.7 MG/DL (8.3-10.6); CREATININE FOR GFR 1.17 MG/DL (0.55-1.30); GLOMERULAR FILTRATION RATE 47.1 (>32); POTASSIUM SERUM 4.5 MMOL/L (3.5-5.1)
[2024-04-18 04:00] VITALS: BP 109/62; TEMP 97.9; O2SAT 93
[2024-04-18 10:04] LABS: HEMATOCRIT 29.9 % (36.0-47.0); MEAN CORPUSCULAR HGB CONC 32.1 g/dl (32.0-36.5); MEAN CORPUSCULAR VOLUME 87.2 fl (80.0-96.0); PLATELET COUNT, AUTOMATED 261 10^3/uL (150-450); RED BLOOD COUNT 3.43 10^6/uL (4.00-5.40)
[2024-04-18 10:07] LABS: HEMOGLOBIN 9.6 g/dl (12.0-15.5)
[2024-04-18 10:34] LABS: CALCIUM LEVEL 8.3 MG/DL (8.3-10.6); CREATININE FOR GFR 1.03 MG/DL (0.55-1.30); GLOMERULAR FILTRATION RATE 54.6 (>32); POTASSIUM SERUM 5.1 MMOL/L (3.5-5.1)
[2024-04-18 12:00] VITALS: BP 115/56; TEMP 97.9; O2SAT 98
[2024-04-18 21:00] VITALS: BP 115/55; TEMP 97.9; O2SAT 96
[2024-04-19 04:00] VITALS: BP 115/58; TEMP 97.9; O2SAT 95
[2024-04-19 05:59] LABS: HEMATOCRIT 27.5 % (36.0-47.0); HEMOGLOBIN 8.7 g/dl (12.0-15.5); MEAN CORPUSCULAR HEMOGLOBIN 27.3 pg (27.0-33.0); MEAN CORPUSCULAR HGB CONC 31.6 g/dl (32.0-36.5); MEAN CORPUSCULAR VOLUME 86.2 fl (80.0-96.0); PLATELET COUNT, AUTOMATED 258 10^3/uL (150-450); RED BLOOD COUNT 3.19 10^6/uL (4.00-5.40); WHITE BLOOD COUNT 6.1 10^3/uL (4.0-10.0)
[2024-04-19 06:28] LABS: ALBUMIN 1.9 G/DL (3.2-5.2); BILIRUBIN,TOTAL 1.1 MG/DL (0.3-1.2); CREATININE FOR GFR 0.97 MG/DL (0.55-1.30); GLOMERULAR FILTRATION RATE 58.5 (>32); POTASSIUM SERUM 4.3 MMOL/L (3.5-5.1)
[2024-04-19 12:01] VITALS: BP 140/67; TEMP 97.5; O2SAT 100
[2024-04-19 20:00] VITALS: BP 121/51; TEMP 98.1; O2SAT 97
[2024-04-20 04:00] VITALS: BP 120/67; TEMP 97.5; O2SAT 95
[2024-04-20 06:01] LABS: HEMATOCRIT 30.4 % (36.0-47.0); HEMOGLOBIN 9.5 g/dl (12.0-15.5); MEAN CORPUSCULAR HEMOGLOBIN 27.6 pg (27.0-33.0); MEAN CORPUSCULAR HGB CONC 31.3 g/dl (32.0-36.5); MEAN CORPUSCULAR VOLUME 88.4 fl (80.0-96.0); PLATELET COUNT, AUTOMATED 292 10^3/uL (150-450); RED BLOOD COUNT 3.44 10^6/uL (4.00-5.40); WHITE BLOOD COUNT 6.4 10^3/uL (4.0-10.0)
[2024-04-20 06:17] LABS: INR 1.21; PARTIAL THROMBOPLASTIN TIME 29.8 SECONDS (24.8-34.2); PROTHROMBIN TIME 15.6 SECONDS (12.5-14.5)
[2024-04-20 06:30] LABS: ALBUMIN 2.1 G/DL (3.2-5.2); BILIRUBIN,TOTAL 1.3 MG/DL (0.3-1.2); CALCIUM LEVEL 8.4 MG/DL (8.3-10.6); CREATININE FOR GFR 0.98 MG/DL (0.55-1.30); GLOMERULAR FILTRATION RATE 57.8 (>32); POTASSIUM SERUM 4.7 MMOL/L (3.5-5.1); TOTAL PROTEIN 5.1 G/DL (5.7-8.2)
[2024-04-20 12:00] VITALS: BP 120/68; TEMP 98.6; O2SAT 93
[2024-04-20 21:36] VITALS: BP 118/58; TEMP 97.7; O2SAT 96
[2024-04-21 04:00] VITALS: BP 122/59; TEMP 97.5; O2SAT 95
[2024-04-21 06:04] LABS: HEMATOCRIT 30.6 % (36.0-47.0); HEMOGLOBIN 9.5 g/dl (12.0-15.5); MEAN CORPUSCULAR HEMOGLOBIN 27.5 pg (27.0-33.0); MEAN CORPUSCULAR VOLUME 88.7 fl (80.0-96.0); PLATELET COUNT, AUTOMATED 316 10^3/uL (150-450); RED BLOOD COUNT 3.45 10^6/uL (4.00-5.40); WHITE BLOOD COUNT 5.9 10^3/uL (4.0-10.0)
[2024-04-21 06:27] LABS: ALBUMIN 2.1 G/DL (3.2-5.2); BILIRUBIN,TOTAL 1.4 MG/DL (0.3-1.2); CALCIUM LEVEL 8.6 MG/DL (8.3-10.6); CREATININE FOR GFR 1.1 MG/DL (0.55-1.30); GLOMERULAR FILTRATION RATE 50.6 (>32); POTASSIUM SERUM 4.9 MMOL/L (3.5-5.1); TOTAL PROTEIN 5.1 G/DL (5.7-8.2)
[2024-04-21 12:00] VITALS: BP 144/77; TEMP 97.5; O2SAT 96
[2024-04-21 20:56] VITALS: BP 134/74; TEMP 97.7; O2SAT 96
[2024-04-22 03:31] VITALS: BP 134/76; TEMP 97.3; O2SAT 95
[2024-04-22 06:37] LABS: HEMATOCRIT 30.6 % (36.0-47.0); HEMOGLOBIN 9.5 g/dl (12.0-15.5); MEAN CORPUSCULAR HEMOGLOBIN 27.9 pg (27.0-33.0); MEAN CORPUSCULAR VOLUME 89.7 fl (80.0-96.0); PLATELET COUNT, AUTOMATED 317 10^3/uL (150-450); RED BLOOD COUNT 3.41 10^6/uL (4.00-5.40); WHITE BLOOD COUNT 6.6 10^3/uL (4.0-10.0)
[2024-04-22 07:08] LABS: ALBUMIN 2.1 G/DL (3.2-5.2); BILIRUBIN,TOTAL 1.3 MG/DL (0.3-1.2); CALCIUM LEVEL 8.4 MG/DL (8.3-10.6); CREATININE FOR GFR 1.05 MG/DL (0.55-1.30); GLOMERULAR FILTRATION RATE 53.4 (>32); POTASSIUM SERUM 4.6 MMOL/L (3.5-5.1); TOTAL PROTEIN 5.3 G/DL (5.7-8.2)
[2024-04-22 12:00] VITALS: BP 123/71; TEMP 97.9; O2SAT 94
[2024-04-23 21:58] VITALS: BP 121/74; TEMP 97.9; O2SAT 96
[2024-04-24 04:00] VITALS: BP 124/73; TEMP 97.7; O2SAT 98
[2024-04-24 08:08] VITALS: BP 121/74; TEMP 97.3; O2SAT 95
[2024-04-24] MEDS: FLUBLOK(EGGFREE) TRIVAL(24-25) VACCINE PF 0.5ML SYRINGE 18YRS & OLDER IM.IMMUN ONE (11:27)
[2024-04-24] MEDS: PREVNAR-20 VACCINE 0.5ML SYRINGE IM.IMMUN ONE (17:02)
[2024-04-25 04:15] VITALS: BP 107/55; TEMP 97.3; O2SAT 95
[2024-04-26 04:00] VITALS: BP 122/61; TEMP 97.9; O2SAT 92
[2024-04-27 04:13] VITALS: BP 132/74; TEMP 97.5; O2SAT 95
[2024-04-27 05:13] LABS: BASO % 0.5 % (0.0-1.0); EOS # 0.2 10^3/uL (0.0-0.5); EOS % 5.7 % (0.0-3.0); HEMATOCRIT 31.3 % (36.0-47.0); HEMOGLOBIN 9.8 g/dl (12.0-15.5); LYMPH # 1.2 10^3/uL (1.5-5.0); LYMPH % 27.6 % (24.0-44.0); MEAN CORPUSCULAR HEMOGLOBIN 27.9 pg (27.0-33.0); MEAN CORPUSCULAR HGB CONC 31.3 g/dl (32.0-36.5); MEAN CORPUSCULAR VOLUME 89.2 fl (80.0-96.0); MONO # 0.4 10^3/uL (0.0-0.8); NEUTROPHILS # 2.4 10^3/uL (1.5-8.5); PLATELET COUNT, AUTOMATED 182 10^3/uL (150-450); RED BLOOD COUNT 3.51 10^6/uL (4.00-5.40); WHITE BLOOD COUNT 4.2 10^3/uL (4.0-10.0)
[2024-04-27 05:42] LABS: CALCIUM LEVEL 8.5 MG/DL (8.3-10.6); CREATININE FOR GFR 1.07 MG/DL (0.55-1.30); GLOMERULAR FILTRATION RATE 52.3 (>32); POTASSIUM SERUM 4.2 MMOL/L (3.5-5.1)
[2024-04-27] MEDS ORDERED: FERR1TAB8 PO (11:14)
[2024-04-27] MEDS ORDERED: METO1TAB87 PO (11:14)
[2024-04-27] MEDS ORDERED: LIDO1PAD TOP (13:00)
== END 2024-04-27 13:25 | DRG 812 ==
LOC: EDBD 12:51 → M ED 12:51 → M ED INP 16:30 → M PCU 04-06 17:03 → M MSPAV 04-14 12:55
PROVIDERS: ADMIT General Practice; ATTEND Internal Medicine
PROC: 30233N1 Transfusion of Nonautologous Red Blood Cells into Peripheral Vein, Percutaneous Approach (ICD-10-PCS; principal; 2024-04-05)
PROC: B246ZZZ Ultrasonography of Right and Left Heart (ICD-10-PCS; 2024-04-06)
PROC: 07DR3ZX Extraction of Iliac Bone Marrow, Percutaneous Approach, Diagnostic (ICD-10-PCS; 2024-04-11)
PROC: 06H03DZ Insertion of Intraluminal Device into Inferior Vena Cava, Percutaneous Approach (ICD-10-PCS; 2024-04-14)
DX: D50.9 Iron deficiency anemia, unspecified (principal); I82.432 Acute embolism and thrombosis of left popliteal vein; I82.412 Acute embolism and thrombosis of left femoral vein; D68.32 Hemorrhagic disorder due to extrinsic circulating anticoagulants; K57.32 Diverticulitis of large intestine without perforation or abscess without bleeding; Z98.41 Cataract extraction status, right eye; Z98.42 Cataract extraction status, left eye; Z90.79 Acquired absence of other genital organ(s); R32 Unspecified urinary incontinence; F32.A Depression, unspecified; I48.91 Unspecified atrial fibrillation; R26.89 Other abnormalities of gait and mobility; Z91.018 Allergy to other foods; D62 Acute posthemorrhagic anemia; Z20.7 Contact with and (suspected) exposure to pediculosis, acariasis and other infestations; D75.9 Disease of blood and blood-forming organs, unspecified; K44.9 Diaphragmatic hernia without obstruction or gangrene; Z11.52 Encounter for screening for COVID-19

== ENCOUNTER 2024-06-01 08:31 | Outpatient (RCR) | payer MEDICARE, OTHER, MEDICAID ==
[~2024-06-01 08:31] MED LIST changes: +FERR1TAB8 PO; +LIDO1PAD TOP; +METO1TAB87 PO
== END 2024-06-18 | disposition expired ==
LOC: M ONCM 08:31
PROVIDERS: ATTEND Specialist
DX: Z79.899 Other long term (current) drug therapy (principal)